=== PATIENT | female | born 1995 | race Two or more races ===

== ENCOUNTER 2021-02-05 11:15 | Emergency (ER) | payer MEDICAID, OTHER ==
[~2021-02-05] VITALS: Ht 152.4 cm; Wt 102.5 kg
[2021-02-05 12:46] VITALS: BP 133/76
== END 2021-02-05 13:17 | disposition home or self-care (01) ==
LOC: ER 11:15
DX: F41.1 Generalized anxiety disorder (principal)

== ENCOUNTER 2022-03-07 09:27 | Emergency (ER) | payer MEDICAID ==
[~2022-03-07] VITALS: Ht 152.4 cm; Wt 99.1 kg
[2022-03-07 10:19] LABS: Albumin 3.6 g/dL (3.4-5.0); Calcium 8.9 mg/dL (8.5-10.1); Potassium 3.6 mmol/L (3.5-5.1)
[2022-03-07 10:22] LABS: BUN/Creatinine Ratio 12.7; Bilirubin, Total 0.4 mg/dL (0.2-1.0); Total Protein 7.4 g/dL (6.4-8.2)
[2022-03-07 10:44] LABS: Basophils # (auto) 0 10 ^3/uL (0-0.2); Basophils % (auto) 0.7 % (0.0-2.0); Eosinophils # (auto) 0.4 10 ^3/uL (0-0.8); Eosinophils % (auto) 5.7 % (0.0-7.0); Hematocrit 38.9 % (36.0-46.0); Hemoglobin 13.1 g/dL (12.2-16.2); Lymphocytes # (auto) 1.9 10 ^3/uL (0.4-5.4); Lymphocytes % (auto) 29.9 % (10.0-50.0); Mean Corpuscular Hgb Conc. 33.7 g/dL (32.0-36.0); Mean Corpuscular Volume 80.2 fL (80.0-100.0); Monocytes # (auto) 0.4 10 ^3/uL (0-1.3); Neutrophils # (auto) 3.6 10 ^3/uL (1.6-8.6); Neutrophils % (auto) 57.7 % (37.0-80.0); Nucleated Red Blood Cells % 0.1 %; Red Blood Cells 4.86 10^6/uL (4.0-5.20); Red Cell Distribution Width 14.3 % (11.8-14.3); White Blood Cell 6.2 10^3/uL (4.4-10.8)
[2022-03-07 11:41] LABS: Urine Bacteria NONE SEEN /hpf (None Seen); Urine Blood 3+ /uL (Negative); Urine Mucus FEW (None Seen); Urine Specific Gravity 1.028 (1.001-1.035); Urine WBC 4 /hpf (0 - 5)
[2022-03-07 15:10] VITALS: BP 151/99
== END 2022-03-07 15:11 | disposition home or self-care (01) ==
LOC: ER 09:27
DX: N92.0 Excessive and frequent menstruation with regular cycle (principal)
CPT/HCPCS: 36415; 80053; 81001; 84702; 85025

== ENCOUNTER 2022-03-08 10:19 | Emergency (ER) | payer MEDICAID ==
[~2022-03-08] VITALS: Ht 152.4 cm; Wt 98.7 kg
[2022-03-08 11:05] VITALS: BP 132/77
== END 2022-03-08 16:40 | disposition left against medical advice (07) ==
LOC: ER 10:19
DX: N92.0 Excessive and frequent menstruation with regular cycle (principal); F41.9 Anxiety disorder, unspecified; Z53.29 Procedure and treatment not carried out because of patient's decision for other reasons

== ENCOUNTER 2024-04-04 04:46 | Inpatient (IN) | payer MEDICAID ==
[~2024-04-04] VITALS: Ht 152.4 cm; Wt 99.0 kg
--- NOTE | 2024-04-04 05:17 | ED.PDOC ---
GI ASSESSMENT HPI Comments 28 year old female presents to the ED with a chief complaint of abdominal pain onset today. Patient states she woke up today experiencing sharp epigastric pain that radiates to RUQ as well as nausea, vomiting. She states she had about 2 beers last night. PMHx of anxiety. Denies fever, chills, diarrhea, chest pain, shortness of breath, dizziness, dysuria, hematuria. No other symptoms or modifying factors present at this time. Time Seen by MD: 05:10 Primary Care Provider: ESTELA Dunn Notes: Medications, Allergies Allergies: Coded Allergies: NO KNOWN ALLERGIES (Unverified , 03/07/22) Information Source: Patient Mode of Arrival: Ambulatory Timing: Hours Duration: Since onset Prehospital treatment: None Quality: Sharp Severity: Moderate Recent: None Recent Hx of: None Pain Location: Epigastric, RUQ Modifying Factors: Nothing Associated sign and symptoms: Nausea, Vomiting, Abdominal Pain Past Medical History PAST MEDICAL HISTORY: Anxiety Surgical History: Denies all surgeries CONSERVATION COORDINATOR History: Denies all CONSERVATION COORDINATOR Hx Family History Family History: Reviewed,noncontributory to illness Social History Smoker: Non-Smoker Alcohol: Occasionally Drugs: Denies Drug Use Lives In: Home Constitutional: denies: chills, diaphoresis, fatigue, fever, malaise, sweats, weakness, others EENTM: denies: blurred vision, double vision, ear bleeding, ear discharge, ear drainage, ear pain, ear ringing, eye pain, eye redness, hearing loss, mouth pain, mouth swelling, nasal discharge, nose bleeding, nose congestion, nose pain, photophobia, tearing, throat pain, throat swelling, voice changes, others Respiratory: denies: cough, hemoptysis, orthopnea, SOB at rest, shortness of breath, SOB with excertion, stridor, wheezing, others Cardiovascular: denies: chest pain, dizzy spells, diaphoresis, Dyspnea on exertion, edema, irregular heart beat, left arm pain, lightheadedness, palpitations, PND, syncope, others Gastrointestinal: reports: abdominal pain, nausea, vomiting; denies: abdomen distended, blood streaked bowels, constipated, diarrhea, dysphagia, difficulty swallowing, hematemesis, melena, poor appetite, poor fluid intake, rectal bleeding, rectal pain, others Genitourinary: denies: abnormal vagina bleeding, burning, dyspareunia, dysuria, flank pain, frequency, hematuria, incontinence, pain, , vagina discharge, urgency, others Neurological: denies: dizziness, fainting, headache, left sided numbness, left sided weakness, numbness, paresthesia, pre-existing deficit, right sided numbness, right sided weakness, seizure, speech problems, tingling, tremors, weakness, others Musculoskeletal: denies: back pain, gout, joint pain, joint swelling, muscle pain, muscle stiffness, neck pain, others Integumetry: denies: bruises, change in color, change in hair/nails, dryness, laceration, lesions, lumps, rash, wounds, others Allergic/Immunocompromised: denies: Difficulty Healing, Frequent Infections, Hives, Itching, others Hematologic/Lymphatic: denies: anemia, blood clots, easy bleeding, easy bruising, swollen glands, others Endocrine: denies: excessive hunger, excessive sweating, excessive thirst, excessive urination, flushing, intolerance to cold, intolerance to heat, unexplained weight gain, unexplained weight loss, others Psychiatric: denies: anxiety, bipolar disorder, depression, hopeless, panic disorder, schizophrenia, sleepless, suicidal, others All Other Systems: Reviewed and Negative Physical Exam General Appearance: No Apparent Distress, Normal HEENT: Normal ENT Inspection, Pharynx Normal, TMs Normal Neck: Full Range of Motion, Non-Tender, Normal, Normal Inspection Respiratory: Chest Non-Tender, Lungs Clear, No Accessory Muscle Use, No Respiratory Distress, Normal Breath Sounds Cardiovascular: No Edema, No JVD, No Murmur, No Gallop, Normal Peripheral Pulses, Regular Rate/Rhythm Breast Exam: Deferred Gastrointestinal: No Organomegaly, No Pulsatile Mass, Normal Bowel Sounds, RUQ (tenderness), Tenderness (ruq) Genitalia: Deferred Pelvic: Deferred Rectal: Deferred Extremities: No calf tenderness, Normal capillary refill, Normal inspection, Normal range of motion, Non-tender, No pedal edema Musculoskeletal : Apperance: Normal Neurologic: Alert, gambling counsellor II-XII nml as Tested, No Motor Deficits, Normal Affect, Normal Mood, No Sensory Deficits Cerebellar Function: Normal Reflexes: Normal Skin: Dry, Normal Color, Warm Lymphatic: No Adenopathy Was a procedure done? Was a procedure done?: No GI differential Dx Differential Diagnosis: Appendicitis, Threatened , Bowel Obstruction, Cholecystitis, Constipation, Ectopic , Urolithiasis, Ischemic Bowel, Kidney Stone X-Ray, Labs, Meds, VS Vital Signs Date Time Temp Pulse Resp B/P (MAP) Pulse Ox O2 Delivery O2 Flow Rate FiO2 04/04/24 07:43 77 17 100 Room Air 04/04/24 07:43 97.9 77 17 159/93 (115) 100 97.9 04/04/24 05:05 97.5 86 20 155/85 (108) 100 Lab Test 04/04/24 05:24 Range/Units White Blood Count 7.7 4.4-10.8 10^3/uL Red Blood Count 4.32 4.0-5.20 10^6/uL Hemoglobin 9.9 L 12.2-16.2 g/dL Hematocrit 31.3 L 36.0-46.0 % Mean Corpuscular Volume 72.5 L 80.0-100.0 fL Mean Corpuscular Hemoglobin 22.9 L 28.0-32.0 pg Mean Corpuscular Hemoglobin Concent 31.7 L 32.0-36.0 g/dL Red Cell Distribution Width 15.9 H 11.8-14.3 % Platelet Count 347 140-450 10^3/uL Mean Platelet Volume 7.6 6.9-10.8 fL Neutrophils (%) (Auto) 80.7 H 37.0-80.0 % Lymphocytes (%) (Auto) 12.9 10.0-50.0 % Monocytes (%) (Auto) 5.0 0.0-12.0 % Eosinophils (%) (Auto) 0.8 0.0-7.0 % Basophils (%) (Auto) 0.6 0.0-2.0 % Neutrophils # (Auto) 6.2 1.6-8.6 10 ^3/uL Lymphocytes # (Auto) 1.0 0.4-5.4 10 ^3/uL Monocytes # (Auto) 0.4 0-1.3 10 ^3/uL Eosinophils # (Auto) 0.1 0-0.8 10 ^3/uL Basophils # (Auto) 0 0-0.2 10 ^3/uL Nucleated Red Blood Cells 0.1 % Urine Color Light-yellow Yellow Urine Clarity Clear Clear Urine pH 6.5 5.0-9.0 Urine Specific [place] 1.024 1.001-1.035 Urine Protein 1+ H Negative Urine Ketones 3+ H Negative Urine Blood 2+ H Negative /uL Urine Nitrite Negative Negative Urine Bilirubin Negative Negative Urine Urobilinogen 2 H Negative mg/dL Urine Leukocyte Esterase Negative Negative /uL Urine RBC 20 0 - 4 /hpf Urine Microscopic WBC 2 0-5 /HPF Urine Squamous Epithelial Cells Few <5 /hpf Urine Bacteria None seen None Seen /hpf Urine Glucose Normal Normal mg/dL Urine Test Negative Negative Sodium Level 137 136-145 mmol/L Potassium Level 3.5 3.5-5.1 mmol/L Chloride Level 101 98-107 mmol/L Carbon Dioxide Level 24 20-31 mmol/L Anion Gap 12 5-15 Blood Urea Nitrogen 11 9-23 mg/dL Creatinine 0.70 0.550-1.02 mg/dL Glomerular Filtration Rate Calc 121 >90 mL/min BUN/Creatinine Ratio 15.7 10.0-20.0 Serum Glucose 147 H 74-106 mg/dL Calcium Level 10.3 8.7-10.4 mg/dL Total Bilirubin 0.5 0.2-1.0 mg/dL Aspartate Amino Transferase (AST) 15 13-40 U/L Alanine Aminotransferase (ALT) 15 7-40 U/L Alkaline Phosphatase 61 46-116 U/L Total Protein 7.9 5.7-8.2 g/dL Albumin 4.7 3.2-4.8 g/dL Lipase 35 12-53 U/L Urine Opiates Screen Neg NEGATIVE Urine Fentanyl Screen Neg NEGATIVE Urine Barbiturates Screen Neg NEGATIVE Urine Phencyclidine Screen Neg NEGATIVE Urine Amphetamines Screen Neg NEGATIVE Urine Benzodiazepines Screen Neg NEGATIVE Urine Cocaine Screen Pos NEGATIVE Urine Cannabinoids Screen Pos NEGATIVE X-Ray, Labs, Meds, VS Comment Addendum by Dr. Silveira: This 28 year old female presented secondary to abdominal pain. We attempted to see the patient x 2 to reassess the patient. We were unable to find the patient. Patient was assumed to have eloped. Patient was foun at 0.745. she continues to have pain and appear unwell. I will admit her for further work up and mgt of likely symptomatic cholelithiasis. She will require a HIDA scan Time of 1ST Reevaluation: 05:40 Reevaluation 1ST: Unchanged Patient Education/Counseling: Diagnosis, Treatment, Prognosis Family Education/Counseling: No Family Present Additional Information The following tests were ordered, and results were reviewed by me: CBC, CMP, LIPASE, UA. DRUG SCREEN, US GALLBLADDER I reviewed and agreed with the following test results read by other providers: US GALLBLADDER I discussed treatment and results with medical personnel, patient Departure 1 Departure Time of Disposition: 07:13 Impression: Primary Impression: Abdominal pain Additional Impression: Cholelithiasis Disposition: 01 HOME / SELF CARE / HOMELESS Condition: Good Discharged With: Self Critical Care Note Critical Care Time?: No Stability Stability form required: No I personally scribed for STEVEN POMPA MD ([email or web address]) on 04/04/24 at 05:17. Electronically submitted by Kierra Montenegro ([email or web address]). I personally scribed for STEVEN POMPA MD ([email or web address]) on 04/04/24 at 05:18. Electronically submitted by Kierra Montenegro ([email or web address]). STEVEN POMPA MD Apr 04, 2024 05:17 JAMISON SILVEIRA MD Apr 04, 2024 07:19
[2024-04-04 05:33] LABS: Urine Bacteria None Seen /hpf (None Seen)
[2024-04-04 05:43] LABS: Eosinophils # (auto) 0.1 10 ^3/uL (0-0.8); Eosinophils % (auto) 0.8 % (0.0-7.0); Hematocrit 31.3 % (36.0-46.0); Mean Corpuscular Hemoglobin 22.9 pg (28.0-32.0); Monocytes # (auto) 0.4 10 ^3/uL (0-1.3); Nucleated Red Blood Cells % 0.1 %
[2024-04-04 05:44] LABS: Basophils # (auto) 0 10 ^3/uL (0-0.2); Basophils % (auto) 0.6 % (0.0-2.0); Hemoglobin 9.9 g/dL (12.2-16.2); Lymphocytes % (auto) 12.9 % (10.0-50.0); Mean Corpuscular Hgb Conc. 31.7 g/dL (32.0-36.0); Mean Corpuscular Volume 72.5 fL (80.0-100.0); Neutrophils # (auto) 6.2 10 ^3/uL (1.6-8.6); Neutrophils % (auto) 80.7 % (37.0-80.0); Platelet Count (auto) 347 10^3/uL (140-450); Red Blood Cells 4.32 10^6/uL (4.0-5.20); Red Cell Distribution Width 15.9 % (11.8-14.3); White Blood Cell 7.7 10^3/uL (4.4-10.8)
[2024-04-04 05:45] LABS: Urine Blood 2+ /uL (Negative); Urine Clarity Clear (Clear); Urine Color Light-Yellow (Yellow); Urine Protein, UAD 1+ (Negative); Urine Specific Gravity 1.024 (1.001-1.035); Urine Squamous Epithelial Cell FEW /hpf (<5); Urine Urobilinogen 2 mg/dL (Negative); Urine WBC 2 /HPF (0-5); Urine pH 6.5 (5.0-9.0)
[2024-04-04 05:58] LABS: Amphetamine Screen, Urine Neg (NEGATIVE); Barbiturate Scree,Urine Neg (NEGATIVE); Benzodiazephine Screen, Urine Neg (NEGATIVE); Cannabinoid Screen, Urine Pos (NEGATIVE); Cocaine Screen, Urine Pos (NEGATIVE); Opiate Scree,Urine Neg (NEGATIVE); Phencyclidine Screen, Urine Neg (NEGATIVE)
[2024-04-04 06:01] LABS: Alanine Aminotransferase 15 U/L (7-40); Albumin 4.7 g/dL (3.2-4.8); Alkaline Phosphatase 61 U/L (46-116); Anion Gap 12 (5-15); Aspartate Aminotransferase 15 U/L (13-40); Bilirubin, Total 0.5 mg/dL (0.2-1.0); Calcium 10.3 mg/dL (8.7-10.4); Carbon Dioxide 24 mmol/L (20-31); Chloride 101 mmol/L (98-107); Lipase 35 U/L (12-53); Sodium 137 mmol/L (136-145); Total Protein 7.9 g/dL (5.7-8.2)
[2024-04-04 06:18] LABS: Glucose 147 mg/dL (74-106); Potassium 3.5 mmol/L (3.5-5.1)
[2024-04-04 06:29] LABS: BUN/Creatinine Ratio 15.7 (10.0-20.0)
[2024-04-04 06:31] LABS: Blood Urea Nitrogen 11 mg/dL (9-23)
--- NOTE | 2024-04-04 06:37 | DVH ---
EXAM: US Abdomen Limited, Gallbladder CLINICAL INDICATION: ruq pain TECHNIQUE: Real-time ultrasound of the right upper quadrant with image documentation. COMPARISON: None FINDINGS: LIVER: Liver measures up to 4.7 cm. GALLBLADDER: Cholelithiasis with positive Gomez's signs. COMMON BILE DUCT: Unremarkable as visualized. No stones. No dilation. Common bile duct measures 0.37 cm in diameter. PANCREAS: Unremarkable as visualized. RIGHT KIDNEY: Right kidney measures up to 10.5 cm. OTHER FINDINGS: . . . IMPRESSION: Cholelithiasis with positive Gomez's signs. Findings may suggest evolving acute cholecystitis.
[2024-04-04] MEDS: SODIUM CHLORIDE 0.9% 1,000 ML IV ONE (08:07)
[2024-04-04] MEDS: ONDANSETRON HCL 4 MG/2 ML VIAL IV ONE ×2 (08:09→08:17)
[2024-04-04] MEDS: FAMOTIDINE (10MG/ML) 2ML VL IV ONE (08:17)
[2024-04-04] MEDS: MORPHINE SULFATE 4 MG/ML SYR/VIAL IV ONE (08:18)
[2024-04-04] MEDS: D5W/LACTATED RINGERS 1,000 ML IV ONE (10:00)
[2024-04-04] MEDS ORDERED: ACETAMINOPHEN 325 MG TAB PO PRN (10:00)
--- NOTE | 2024-04-04 10:00 | DVHHP2 ---
Admitting Diagnosis: Abdominal pain History of Present Illness 28 year old female presents to the ED with a chief complaint of abdominal pain onset today. Patient states she woke up today experiencing sharp epigastric pain that radiates to RUQ as well as nausea, vomiting. She states she had about 2 beers last night. PMHx of anxiety. Denies fever, chills, diarrhea, chest pain, shortness of breath, dizziness, dysuria, hematuria. No other symptoms or modifying factors present at this time. PAST MEDICAL HISTORY: Anxiety Surgical History: Denies all surgeries CAKE ICER History: Denies all CAKE ICER Hx Family History Family History: Reviewed,noncontributory to illness Social History Smoker: Non-Smoker Alcohol: Occasionally Drugs: Denies Drug Use Lives In: Home Allergies: Coded Allergies: NO KNOWN ALLERGIES (Unverified , 03/07/22) Current Medications Current Medications Medications (Trade) Dose Ordered Sig/Jayla Route PRN Reason Start Time Stop Time Status Last Admin Ceftriaxone Sodium 50 ml @ 100 mls/hr DAILY IV 04/04/24 10:00 Metronidazole 100 ml @ 100 mls/hr Q8H IV 04/04/24 09:30 Vital Signs Vital Signs Date Time Temp Pulse Resp B/P (MAP) Pulse Ox O2 Delivery O2 Flow Rate FiO2 04/04/24 08:50 98.2 70 18 145/90 (108) 100 98.2 04/04/24 07:43 Room Air Physical Exam General-28 years old woman, morbidly obese, sitting on chair radiology exam room. No apparent distress HEENT-atraumatic normocephalic Heart-regular rate and rhythm Lungs clear to auscultate bilaterally Abdomen soft, right upper quadrant tenderness, nondistended Musculoskeletal-no cyanosis, pedal edema Neuro-AO x3, no focal deficits Results Labs Test 04/04/24 05:24 Range/Units White Blood Count 7.7 4.4-10.8 10^3/uL Red Blood Count 4.32 4.0-5.20 10^6/uL Hemoglobin 9.9 L 12.2-16.2 g/dL Hematocrit 31.3 L 36.0-46.0 % Mean Corpuscular Volume 72.5 L 80.0-100.0 fL Mean Corpuscular Hemoglobin 22.9 L 28.0-32.0 pg Mean Corpuscular Hemoglobin Concent 31.7 L 32.0-36.0 g/dL Red Cell Distribution Width 15.9 H 11.8-14.3 % Platelet Count 347 140-450 10^3/uL Mean Platelet Volume 7.6 6.9-10.8 fL Neutrophils (%) (Auto) 80.7 H 37.0-80.0 % Lymphocytes (%) (Auto) 12.9 10.0-50.0 % Monocytes (%) (Auto) 5.0 0.0-12.0 % Eosinophils (%) (Auto) 0.8 0.0-7.0 % Basophils (%) (Auto) 0.6 0.0-2.0 % Neutrophils # (Auto) 6.2 1.6-8.6 10 ^3/uL Lymphocytes # (Auto) 1.0 0.4-5.4 10 ^3/uL Monocytes # (Auto) 0.4 0-1.3 10 ^3/uL Eosinophils # (Auto) 0.1 0-0.8 10 ^3/uL Basophils # (Auto) 0 0-0.2 10 ^3/uL Nucleated Red Blood Cells 0.1 % Urine Color Light-yellow Yellow Urine Clarity Clear Clear Urine pH 6.5 5.0-9.0 Urine Specific [place] 1.024 1.001-1.035 Urine Protein 1+ H Negative Urine Ketones 3+ H Negative Urine Blood 2+ H Negative /uL Urine Nitrite Negative Negative Urine Bilirubin Negative Negative Urine Urobilinogen 2 H Negative mg/dL Urine Leukocyte Esterase Negative Negative /uL Urine RBC 20 0 - 4 /hpf Urine Microscopic WBC 2 0-5 /HPF Urine Squamous Epithelial Cells Few <5 /hpf Urine Bacteria None seen None Seen /hpf Urine Glucose Normal Normal mg/dL Urine Test Negative Negative Sodium Level 137 136-145 mmol/L Potassium Level 3.5 3.5-5.1 mmol/L Chloride Level 101 98-107 mmol/L Carbon Dioxide Level 24 20-31 mmol/L Anion Gap 12 5-15 Blood Urea Nitrogen 11 9-23 mg/dL Creatinine 0.70 0.550-1.02 mg/dL Glomerular Filtration Rate Calc 121 >90 mL/min BUN/Creatinine Ratio 15.7 10.0-20.0 Serum Glucose 147 H 74-106 mg/dL Calcium Level 10.3 8.7-10.4 mg/dL Total Bilirubin 0.5 0.2-1.0 mg/dL Aspartate Amino Transferase (AST) 15 13-40 U/L Alanine Aminotransferase (ALT) 15 7-40 U/L Alkaline Phosphatase 61 46-116 U/L Total Protein 7.9 5.7-8.2 g/dL Albumin 4.7 3.2-4.8 g/dL Lipase 35 12-53 U/L Urine Opiates Screen Neg NEGATIVE Urine Fentanyl Screen Neg NEGATIVE Urine Barbiturates Screen Neg NEGATIVE Urine Phencyclidine Screen Neg NEGATIVE Urine Amphetamines Screen Neg NEGATIVE Urine Benzodiazepines Screen Neg NEGATIVE Urine Cocaine Screen Pos NEGATIVE Urine Cannabinoids Screen Pos NEGATIVE Primary Diagnosis Acute cholecystitis Cholelithiasis Drug abuse Plan Ultrasound shows cholelithiasis with positive Gomez sign HIDA scan completed pending results Start ceftriaxone, Flagyl for acute cholecystitis Surgery consult acute cholecystitis IV fluids Pain control Antiemetic NPO except meds for possible procedure. Resume regular diet if no surgery planned For pain Full code PPI for GI prophylaxis SCD for DVT prophylaxis NPO except meds Plan discussed with: Patient Problems List: (1) Cholecystitis (2) Abdominal pain Status: Acute (3) Cholelithiasis Status: Acute Date of Service: Apr 04, 2024 Billing Provider: RYLEY GALAVIZ MD Common Visit Codes: [id number] INP/OBS CARE (HIGH) RYLEY GALAVIZ MD Apr 04, 2024 10:00
[2024-04-04] MEDS: cefTRIAXone 1GM/50ML D5W 50 ML IV SCH (10:54)
[2024-04-04] MEDS: metroNIDAZOLE 500MG/100ML 100 ML IV SCH (10:59)
[2024-04-04] MEDS: PANTOPRAZOLE 40 MG/10 ML VIAL INJ IV SCH (10:59)
[2024-04-04 12:23] LABS: INR 1.01 (0.9-1.15); Prothrombin Time 10.7 sec (9.3-11.8)
--- NOTE | 2024-04-04 13:06 | DVH ---
EXAM: NM NM HIDA SCAN History: RUQ abd pain. symptomatic herve Comparison Study: None available TECHNIQUE: Following intravenous administration of 5.6 mCi of Tc-99m mebrofenin (Choletec), dynamic sequential images of the right upper abdomen were acquired for 60 minutes. An additional 4 hour delay ed planar image in the lateral right upper quadrant was also obtained. FINDINGS: The liver demonstrates prompt radiotracer uptake with clearance from blood pool. No focal perfusion d efects were noted. There was prompt excretion of the radiotracer into the biliary tree, without evide nce of biliary dilatation or obstruction. There was no filling of the gallbladder on the 60 minute or 4 hour delayed images. IMPRESSION: 1. Nonvisualized gallbladder, consistent with acute cholecystitis.
[2024-04-04] MEDS: SODIUM CHLOR 0.9% PF (SALINE LOCK) 10ML VIAL/SYR IV SCH (14:01)
[2024-04-04 15:11] VITALS: BP 131/73; PULSE 72; RESP 16; TEMP 98.7; O2SAT 100
[2024-04-04 15:50] VITALS: BP 132/76; PULSE 87; RESP 16; TEMP 98.3; O2SAT 100
[2024-04-04 16:27] VITALS: BP 132/76; PULSE 87; RESP 16; TEMP 98.3; O2SAT 100
[2024-04-04] MEDS: D5W/SOD CHL 0.45%/KCL 20MEQ 1,000 ML IV SCH (17:00)
[2024-04-04 20:00] VITALS: PULSE 77; RESP 18; O2SAT 97
[2024-04-04 20:59] VITALS: BP 124/66; PULSE 77; RESP 18; TEMP 98.7; O2SAT 97
[2024-04-04] MEDS: ceFAZolin 1GM/50ML 50 ML IV SCH (21:49)
[2024-04-05] VITALS (9 sets, daily range): BP systolic 102–124; BP diastolic 56–85; PULSE 61–86; RESP 16–20; TEMP 98–98.7; O2SAT 96–100
--- NOTE | 2024-04-05 06:03 | DVH ---
CHEST RADIOGRAPH Indication: Pain Technique: Single frontal view of the chest was obtained COMPARISON: None FINDINGS: Lines and Tubes: None Lungs: Clear Pleura: No effusion. No pneumothorax. Cardiomediastinal contours: Unremarkable Bones: Unremarkable IMPRESSION: No acute disease.
[2024-04-05 06:20] LABS: Basophils # (auto) 0 10 ^3/uL (0-0.2); Basophils % (auto) 0.4 % (0.0-2.0); Eosinophils # (auto) 0.1 10 ^3/uL (0-0.8); Eosinophils % (auto) 1.2 % (0.0-7.0); Hematocrit 29.5 % (36.0-46.0); Lymphocytes # (auto) 1.5 10 ^3/uL (0.4-5.4); Lymphocytes % (auto) 23.2 % (10.0-50.0); Mean Corpuscular Hemoglobin 22.7 pg (28.0-32.0); Mean Corpuscular Hgb Conc. 30.7 g/dL (32.0-36.0); Monocytes # (auto) 0.6 10 ^3/uL (0-1.3); Neutrophils # (auto) 4.1 10 ^3/uL (1.6-8.6); Neutrophils % (auto) 66.2 % (37.0-80.0); Platelet Count (auto) 252 10^3/uL (140-450); Red Blood Cells 3.99 10^6/uL (4.0-5.20); Red Cell Distribution Width 15.7 % (11.8-14.3); White Blood Cell 6.3 10^3/uL (4.4-10.8)
[2024-04-05 06:44] LABS: Alanine Aminotransferase 9 U/L (7-40); Albumin 3.8 g/dL (3.2-4.8); Alkaline Phosphatase 49 U/L (46-116); Anion Gap 8 (5-15); Aspartate Aminotransferase 10 U/L (13-40); BUN/Creatinine Ratio 8.2 (10.0-20.0); Bilirubin, Total 0.5 mg/dL (0.2-1.0); Blood Urea Nitrogen < 5 mg/dL (9-23); Calcium 9.3 mg/dL (8.7-10.4); Carbon Dioxide 26 mmol/L (20-31); Chloride 104 mmol/L (98-107); Glucose 103 mg/dL (74-106); Potassium 3.4 mmol/L (3.5-5.1); Sodium 138 mmol/L (136-145); Total Protein 6.3 g/dL (5.7-8.2)
[2024-04-05] MEDS: BUPIVACAINE 0.5% P/F INJ 10 ML VIAL ONE (07:01)
[2024-04-05] MEDS: LIDOCAINE W/ EPINEPHRINE 1% 20ML VIAL ONE (07:01)
[2024-04-05] MEDS ORDERED: MEPERIDINE HCL (25 MG/ML) 1ML VIAL ONE (07:34)
[2024-04-05] MEDS ORDERED: fentaNYL CITRATE 100 MCG/2 ML VL ONE (07:34)
[2024-04-05] MEDS ORDERED: MIDAZOLAM HCL 2MG/2ML 2ml VIAL (1mg/ml) ONE (07:34)
[2024-04-05] MEDS: SUCCINYLCHOLINE CHLORIDE 20 MG/ML 10ML VIAL IV ONE (08:01)
--- NOTE | 2024-04-05 08:12 | DVHINCON2 ---
Date of service: Apr 05, 2024 Family History: Patient reports no known family medical history. Allergies: Coded Allergies: NO KNOWN ALLERGIES (Unverified , 03/07/22) Current Medications Current Medications Medications (Trade) Dose Ordered Sig/Jayla Route PRN Reason Start Time Stop Time Status Last Admin Ceftriaxone Sodium 50 ml @ 100 mls/hr DAILY IV 04/04/24 10:00 04/04/24 10:54 Metronidazole 100 ml @ 100 mls/hr Q8H IV 04/04/24 09:30 04/05/24 01:43 Sodium Chloride (Saline Lock Ns) 10 ml Q8HR IV 04/04/24 14:00 04/05/24 05:42 Docusate Sodium (Colace Capsule) 100 mg BIDPRN PRN PO FOR CONSTIPATION 04/04/24 10:00 Acetaminophen (Tylenol Tablet) 650 mg Q6HP PRN PO PAIN SCALE 1-3 OR TEMP>100.4 04/04/24 10:00 Acetaminophen/ Hydrocodone Bitart (Loving 5/325MG Tab) 1 tab Q4HP PRN PO MODERATE PAIN (4-6 PAIN SCALE) 04/04/24 10:00 Hydromorphone HCl (Dilaudid Injection) 0.5 mg Q4HP PRN IV SEVERE PAIN (7-10 PAIN SCALE) 04/04/24 10:00 Ondansetron HCl (Zofran) 4 mg Q4HP PRN IV NAUSEA / VOMITING 04/04/24 10:00 Pantoprazole Sodium (Protonix) 40 mg DAILY IV 04/04/24 10:00 04/04/24 10:59 Potassium Chloride/Dextrose/ Sod Cl 1,000 ml @ 120 mls/hr Q8H20M IV 04/04/24 16:15 04/05/24 00:56 Cefazolin Sodium 50 ml @ 100 mls/hr Q8HR IV 04/04/24 22:00 04/05/24 05:41 Vital Signs Vital Signs Date Time Temp Pulse Resp B/P (MAP) Pulse Ox O2 Delivery O2 Flow Rate FiO2 04/05/24 05:00 98.4 86 20 124/85 (98) 97 98.4 04/04/24 20:00 Room Air* 0 21 Labs/Diagnostic Data Labs Test 04/05/24 04:54 04/04/24 11:29 04/04/24 05:24 Range/Units White Blood Count 6.3 4.4-10.8 10^3/uL Red Blood Count 3.99 L 4.0-5.20 10^6/uL Hemoglobin 9.0 L 12.2-16.2 g/dL Hematocrit 29.5 L 36.0-46.0 % Mean Corpuscular Volume 74.0 L 80.0-100.0 fL Mean Corpuscular Hemoglobin 22.7 L 28.0-32.0 pg Mean Corpuscular Hemoglobin Concent 30.7 L 32.0-36.0 g/dL Red Cell Distribution Width 15.7 H 11.8-14.3 % Platelet Count 252 140-450 10^3/uL Mean Platelet Volume 7.8 6.9-10.8 fL Neutrophils (%) (Auto) 66.2 37.0-80.0 % Lymphocytes (%) (Auto) 23.2 10.0-50.0 % Monocytes (%) (Auto) 9.0 0.0-12.0 % Eosinophils (%) (Auto) 1.2 0.0-7.0 % Basophils (%) (Auto) 0.4 0.0-2.0 % Neutrophils # (Auto) 4.1 1.6-8.6 10 ^3/uL Lymphocytes # (Auto) 1.5 0.4-5.4 10 ^3/uL Monocytes # (Auto) 0.6 0-1.3 10 ^3/uL Eosinophils # (Auto) 0.1 0-0.8 10 ^3/uL Basophils # (Auto) 0 0-0.2 10 ^3/uL Nucleated Red Blood Cells 0.0 % Sodium Level 138 136-145 mmol/L Potassium Level 3.4 L 3.5-5.1 mmol/L Chloride Level 104 98-107 mmol/L Carbon Dioxide Level 26 20-31 mmol/L Anion Gap 8 5-15 Blood Urea Nitrogen < 5 L 9-23 mg/dL Creatinine 0.61 0.550-1.02 mg/dL Glomerular Filtration Rate Calc 126 >90 mL/min BUN/Creatinine Ratio 8.2 L 10.0-20.0 Serum Glucose 103 74-106 mg/dL Calcium Level 9.3 8.7-10.4 mg/dL Total Bilirubin 0.5 0.2-1.0 mg/dL Aspartate Amino Transferase (AST) 10 L 13-40 U/L Alanine Aminotransferase (ALT) 9 7-40 U/L Alkaline Phosphatase 49 46-116 U/L Total Protein 6.3 5.7-8.2 g/dL Albumin 3.8 3.2-4.8 g/dL Prothrombin Time 10.7 9.3-11.8 sec Prothrombin Time INR 1.01 0.9-1.15 Lactic Acid Level 0.9 0.4-2.0 mmol/L Urine Color Light-yellow Yellow Urine Clarity Clear Clear Urine pH 6.5 5.0-9.0 Urine Specific [place] 1.024 1.001-1.035 Urine Protein 1+ H Negative Urine Ketones 3+ H Negative Urine Blood 2+ H Negative /uL Urine Nitrite Negative Negative Urine Bilirubin Negative Negative Urine Urobilinogen 2 H Negative mg/dL Urine Leukocyte Esterase Negative Negative /uL Urine RBC 20 0 - 4 /hpf Urine Microscopic WBC 2 0-5 /HPF Urine Squamous Epithelial Cells Few <5 /hpf Urine Bacteria None seen None Seen /hpf Urine Glucose Normal Normal mg/dL Urine Test Negative Negative Lipase 35 12-53 U/L Urine Opiates Screen Neg NEGATIVE Urine Fentanyl Screen Neg NEGATIVE Urine Barbiturates Screen Neg NEGATIVE Urine Phencyclidine Screen Neg NEGATIVE Urine Amphetamines Screen Neg NEGATIVE Urine Benzodiazepines Screen Neg NEGATIVE Urine Cocaine Screen Pos NEGATIVE Urine Cannabinoids Screen Pos NEGATIVE Assessment 04/05/24 28 YEAR OLD MORBIDLY OBESE FEMALE WITH SEVERAL MONTHS OF RECURRING RIGHT UPPER QUADRANT POST PRANDIAL PAIN, RADIATING TO UPPER BACK .DOCUMENTED C HOLELITHIASIS AND POSITIVE HIDA SCAN. ABDOMEN IS TENDER TO PALPATION IN THE UPPER RIGHT QUADRANT AND MID EPIGASTRIUM, LAPAROSCOPIC POSSIBLY OPEN CHOLECYSTECTOMY, RISKS AND COMPLICATIONS DISCUSSED. HER LIVER ENZYMES AND BILIRUBIN ARE NORMAL, HER TEST IS NEGATIVE. Plan discussed with: Patient SHARLA GROSS MD Apr 05, 2024 08:12
[2024-04-05] MEDS ORDERED: diphenhdrAMINE HCL 50 MG/1 ML VL ONE (08:15)
[2024-04-05] MEDS ORDERED: SUGAMMADEX 200mg/2ml Vial (100MG/ML) IV ONE (08:38)
[2024-04-05] MEDS ORDERED: ONDANSETRON HCL 4 MG/2 ML VIAL ONE (08:38)
[2024-04-05] MEDS ORDERED: KETOROLAC TROMETH 30 MG/ML 1ML VIAL ONE (08:39)
[2024-04-05] MEDS ORDERED: ONDANSETRON HCL 4 MG/2 ML VIAL IV ONE (09:15)
[2024-04-05] MEDS: KETOROLAC TROMETH 30 MG/ML 1ML VIAL IV ONE (09:15)
[2024-04-05] MEDS ORDERED: MIDAZOLAM HCL 2MG/2ML 2ml VIAL (1mg/ml) IV PRN (09:15)
[2024-04-05] MEDS ORDERED: hydrALAZINE HCL 20 MG/ML VL IV PRN (09:15)
[2024-04-05] MEDS ORDERED: MORPHINE SULFATE 4 MG/ML SYR/VIAL IV PRN (09:15)
[2024-04-05] MEDS ORDERED: ePHEDrine SULFATE 50 MG/ML AMP IV PRN (09:15)
[2024-04-05] MEDS: HYDROmorphone HCL 2 MG/ML VL/or syr IV PRN ×3 (09:31→22:45)
[2024-04-05] MEDS: HYDROmorphone HCL 2 MG/ML VL/or syr ONE (09:38)
--- NOTE | 2024-04-05 10:07 | DVHOP ---
DATE OF SURGERY: 04/05/2024 PREOPERATIVE DIAGNOSES: * Cholelithiasis. * Cholecystitis. POSTOPERATIVE DIAGNOSES: * Cholelithiasis. * Cholecystitis. * Morbid obesity. SURGEON: Pacheco Hester MD ANESTHESIA: General endotracheal, Dr. Wilson. PROCEDURES: * Laparoscopy. * Laparoscopic cholecystectomy. DESCRIPTION OF PROCEDURE: Under general endotracheal anesthesia with the patient's skin prepped and draped, supraumbilical incision was made. Veress needle inserted into the peritoneal cavity by the hanging drop technique in order to establish pneumoperitoneum to 15 mmHg pressure by insufflation with carbon dioxide. With the abdomen fully distended, the needle was removed and replaced with a 5 mm trocar port through which a 0-degree viewing laparoscope was inserted, and under direct vision, additional 5 and 10 mm ports inserted through the right anterior axillary line location at the level of the umbilicus and through the subxiphoid midline skin respectively. Instrumentation was introduced. Laparoscopy was performed revealing no obvious unexpected pathology, although laparoscopy was hampered by the patient's morbid obesity. The gallbladder was acutely inflamed and was massively distended, erythematous, and edematous. The gallbladder was placed on tension. The cystic duct and cystic artery were identified, circumferentially dissected, skeletonized, and traced into the hepatocystic triangle so as to minimize the potential for inadvertent injury to the common bile duct. The gallbladder was then manipulated in such a way as to be able to transect the cystic duct and cystic artery close to the gallbladder as these structures were foreshortened due to the inflammatory changes. The cystic duct and cystic artery were divided between metallic clips. Then, subsequently the gallbladder was resected from its liver bed by electrocautery and traction. The fully mobilized gallbladder was removed from the peritoneal cavity by placement in a specimen extraction bag. The subhepatic space was irrigated. The irrigant was aspirated. A 10 mm Tremayne-Duong drain was placed underneath the right lobe of the liver and exteriorized through the 5 mm trocar port site and secured with a 2-0 nylon suture. The patient's fascia was closed using Endo Close suture with a 2-0 Vicryl. The patient's skin approximated using metallic skin mila. She remained hemodynamically stable and left the operating room following assurance of complete hemostasis within the abdomen. The patient asked me preoperatively not to call her family after the surgery. MD FLORENCE Azevedo/TRINA/KASEY TID: [id number] RECEIPT: [id number]
--- NOTE | 2024-04-05 10:36 | ECG ---
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
[2024-04-05] MEDS: D5W/SOD CHL 0.45%/KCL 20MEQ 1,000 ML IV SCH (11:27)
[2024-04-05] MEDS: cefTRIAXone 1GM/50ML D5W 50 ML IV SCH (12:07)
--- NOTE | 2024-04-05 13:15 | DVHPNRES ---
Progress Note Date Seen: Apr 05, 2024 Resident Creating Document: JHEsvinJGILDARDO LeslieBRYAN RESIDENT Medical Necessity Reason Pt with a Central, PICC or Fol: No Subjective Review of Systems Patient is a 28-year-old female with no significant past medical history came to the ED with a chief complaint of sudden onset abdominal pain since the morning yesterday. Patient reported she was apparently well until the night before and woke up with sudden onset right upper quadrant and epigastric pain which radiated to the back, constant, sharp, severe in intensity associated with the multiple episodes of vomiting. Patient also reported cold sweats. Patient reported that she had a couple of beers the night prior. Patient denied chest pain, palpitations, shortness of breath, dizziness, dysuria or hematuria. Past medical history: None Past surgical history: None Social history: Patient lives at home and denies smoking, alcohol, drug use No home medication Review of systems Patient seen and examined at bedside after laparoscopic cholecystectomy Reports [id number] abdominal tightness. Denies nausea or vomiting Tolerating clear liquid diet well Currently denied passing flatus or bowel movement Objective vital signs Vital Sign Date Time Temp Pulse Resp B/P (MAP) Pulse Ox O2 Delivery O2 Flow Rate FiO2 04/05/24 10:30 98.1 64 16 102/56 (71) 100 98.1 04/05/24 10:00 Room Air 0 04/05/24 09:18 98 Total Intake and Output 04/04/24 04/04/24 04/05/24 15:00 23:00 07:00 Intake Total 1000 ml 150 ml 175 ml Balance 1000 ml 150 ml 175 ml medications Current Medications Medications Dose Ordered Sig/Jayla Route Start Time Stop Time Status Last Admin Dose Admin Metronidazole 100 ml @ 100 mls/hr Q8H IV 04/04/24 09:30 04/05/24 11:26 100 MLS/HR Sodium Chloride 10 ml Q8HR IV 04/04/24 14:00 04/05/24 05:42 10 ML Docusate Sodium 100 mg BIDPRN PRN PO 04/04/24 10:00 Acetaminophen 650 mg Q6HP PRN PO 04/04/24 10:00 Acetaminophen/ Hydrocodone Bitart 1 tab Q4HP PRN PO 04/04/24 10:00 Hydromorphone HCl 0.5 mg Q4HP PRN IV 04/04/24 10:00 Ondansetron HCl 4 mg Q4HP PRN IV 04/04/24 10:00 Pantoprazole Sodium 40 mg DAILY IV 04/04/24 10:00 04/05/24 11:26 40 MG Midazolam HCl 1 mg Q10M PRN IV 04/05/24 09:15 04/05/24 15:00 Hydromorphone HCl 0.5 mg Q10M PRN IV 04/05/24 09:15 04/05/24 15:00 04/05/24 09:44 0.5 MG Potassium Chloride/Dextrose/ Sod Cl 1,000 ml @ 120 mls/hr Q8H20M IV 04/05/24 09:15 04/05/24 11:27 120 MLS/HR Ceftriaxone Sodium 50 ml @ 100 mls/hr DAILY@09 IV 04/05/24 10:00 04/05/24 12:07 100 MLS/HR Metronidazole 100 ml @ 100 mls/hr Q8HR IV 04/05/24 14:00 Hydromorphone HCl 1 mg Q2HPRN PRN IV 04/05/24 09:15 Examination Physical Examination Constitutional: Patient was alert and oriented to time, place and person and does not appear to be in any acute distress Gen - no pallor, no icterus, no cyanosis, no clubbing, no LAD, no edema . Skin - Patients skin is warm and dry. HEENT - normocephalic, atraumatic, moist mucous membranes. Neck - full ROM, no LAD, no JVD. Pulmonary - B/L vesicular breath sounds. no crackles, no wheezing cardiovascular - normal S1,S2 heard. no murmurs heard. GI -abdominal binder on. soft abdomen with tenderness to palpation. Bowel sounds hypoactive Neurological - Bilateral upper extremity strength 5/5, bilateral lower extremity strength 5/5, no facial droop, normal speech, no tremor, no sensory deficiets. laboratory and microbiology Laboratory Tests 04/05/24 04:54 Test 04/05/24 04:54 Range/Units Serum Glucose 103 74-106 mg/dL Microbiology Date/Time Source Procedure Growth Status 04/04/24 11:51 Blood Blood Culture - Preliminary NO GROWTH AFTER 24 HOURS OF INCUBATION. Resulted Problem List/Assessment/Plan Problem List/Assessment/Plan Acute abdominal pain Acute cholecystitis Ruled out acute pancreatitis - gallbladder ultrasound showed cholelithiasis with a positive Gomez's sign - nuclear medicine HIDA scan reveals nonvisualized gallbladder, consistent with the acute cholecystitis - laparoscopic cholecystectomy done - MANDI drain with a serosanguineous drainage - on clear liquid diet - ceftriaxone IV and metronidazole IV - pain control with Dilaudid and Exchange - IV fluids D5 half NS with potassium 20 mEq Polysubstance abuse - urinalysis positive for cocaine and cannabis - patient counseled on cessation for more than 15 minutes PUD prophylaxis: Protonix 40 mg IV daily Goals care discussed with the patient for over 25 minutes. Full code Plan discussed with Plan discussed with: Patient Date of Service: Apr 05, 2024 Billing Provider: KAMALA TOWNSEND MD Common Visit Codes: [id number] INP/OBS CARE(HIGH) NEFTALY CAMPOVERDE RESIDENT Apr 05, 2024 13:15 KAMALA TOWNSEND MD Apr 08, 2024 10:13
[2024-04-05] MEDS: metroNIDAZOLE 500MG/100ML 100 ML IV SCH ×2 (14:58→22:52)
[2024-04-06] VITALS (7 sets, daily range): BP systolic 101–130; BP diastolic 56–74; PULSE 60–70; RESP 17–20; TEMP 97.5–98.7; O2SAT 94–100
[2024-04-06 05:40] LABS: Basophils # (auto) 0 10 ^3/uL (0-0.2); Basophils % (auto) 0.3 % (0.0-2.0); Eosinophils # (auto) 0 10 ^3/uL (0-0.8); Eosinophils % (auto) 0.1 % (0.0-7.0); Hematocrit 27.4 % (36.0-46.0); Hemoglobin 8.5 g/dL (12.2-16.2); Lymphocytes # (auto) 1.2 10 ^3/uL (0.4-5.4); Lymphocytes % (auto) 12.8 % (10.0-50.0); Mean Corpuscular Hemoglobin 22.9 pg (28.0-32.0); Mean Corpuscular Hgb Conc. 30.9 g/dL (32.0-36.0); Mean Corpuscular Volume 74.1 fL (80.0-100.0); Monocytes # (auto) 0.7 10 ^3/uL (0-1.3); Monocytes % (auto) 7.4 % (0.0-12.0); Neutrophils # (auto) 7.6 10 ^3/uL (1.6-8.6); Neutrophils % (auto) 79.4 % (37.0-80.0); Nucleated Red Blood Cells % 0.1 %; Platelet Count (auto) 242 10^3/uL (140-450); Red Blood Cells 3.71 10^6/uL (4.0-5.20); Red Cell Distribution Width 16.2 % (11.8-14.3); White Blood Cell 9.5 10^3/uL (4.4-10.8)
[2024-04-06 06:07] LABS: Alanine Aminotransferase 12 U/L (7-40); Albumin 3.8 g/dL (3.2-4.8); Alkaline Phosphatase 46 U/L (46-116); Anion Gap 8 (5-15); Aspartate Aminotransferase 14 U/L (13-40); BUN/Creatinine Ratio 8.1 (10.0-20.0); Bilirubin, Total 0.4 mg/dL (0.2-1.0); Blood Urea Nitrogen < 5 mg/dL (9-23); Calcium 9.3 mg/dL (8.7-10.4); Carbon Dioxide 24 mmol/L (20-31); Chloride 105 mmol/L (98-107); Glucose 117 mg/dL (74-106); Sodium 137 mmol/L (136-145); Total Protein 6.2 g/dL (5.7-8.2)
[2024-04-06] MEDS ORDERED: PROPOFOL 10 MG/ML 20 ML IV ONE (07:39)
[2024-04-06] MEDS: DOCUSATE SOD 100 MG CAP PO PRN (08:25)
[2024-04-06] MEDS: HYDROcodone-ACET 5/325MG TAB PO PRN (12:03)
[2024-04-06] MEDS: ONDANSETRON HCL 4 MG/2 ML VIAL IV PRN (12:11)
--- NOTE | 2024-04-06 12:22 | DVHPN2 ---
Progress Note Date Seen: Apr 06, 2024 Medical Necessity Reason Pt with a Central, PICC or Fol: No Objective vital signs Vital Sign Date Time Temp Pulse Resp B/P (MAP) Pulse Ox O2 Delivery O2 Flow Rate FiO2 04/06/24 09:00 98.2 65 18 119/68 (85) 98 98.2 04/06/24 07:30 Room Air* 0 21 Total Intake and Output 04/05/24 04/05/24 04/06/24 15:00 23:00 07:00 Intake Total 760 ml 2085 ml 2075 ml Output Total 120 ml 25 ml Balance 640 ml 2060 ml 2075 ml medications Current Medications Medications Dose Ordered Sig/Jayla Route Start Time Stop Time Status Last Admin Dose Admin Sodium Chloride 10 ml Q8HR IV 04/04/24 14:00 04/06/24 06:28 10 ML Docusate Sodium 100 mg BIDPRN PRN PO 04/04/24 10:00 04/06/24 08:25 100 MG Acetaminophen 650 mg Q6HP PRN PO 04/04/24 10:00 Acetaminophen/ Hydrocodone Bitart 1 tab Q4HP PRN PO 04/04/24 10:00 04/06/24 12:03 1 TAB Ondansetron HCl 4 mg Q4HP PRN IV 04/04/24 10:00 04/06/24 12:11 4 MG Pantoprazole Sodium 40 mg DAILY IV 04/04/24 10:00 04/06/24 08:25 40 MG Potassium Chloride/Dextrose/ Sod Cl 1,000 ml @ 120 mls/hr Q8H20M IV 04/05/24 09:15 04/06/24 10:52 120 MLS/HR Ceftriaxone Sodium 50 ml @ 100 mls/hr DAILY@09 IV 04/05/24 10:00 04/06/24 08:25 100 MLS/HR Hydromorphone HCl 1 mg Q2HPRN PRN IV 04/05/24 09:15 04/06/24 08:25 1 MG Metronidazole 100 ml @ 100 mls/hr Q8H IV 04/05/24 20:00 04/06/24 10:53 100 MLS/HR laboratory and microbiology Laboratory Tests 04/06/24 05:05 Test 04/06/24 05:05 Range/Units Serum Glucose 117 H 74-106 mg/dL Problem List/Assessment/Plan Problem List/Assessment/Plan 04/06/24 FEELS "ok" ABDOMEN APPROPRIATELY TENDER, WOUNDS CLEAN AND WELL APPROXIMATED, MANDI DRAINAGE NON BILIOUS, LABS OK, ADVANCE PO DIET, PROBABLY HOME IN AM TOMORROW 2 Plan discussed with: Patient SHARLA GROSS MD Apr 06, 2024 12:22
--- NOTE | 2024-04-06 12:55 | DVHPNRES ---
Progress Note Date Seen: Apr 06, 2024 Resident Creating Document: JHAJNEFTALY Leslie RESIDENT Medical Necessity Reason Pt with a Central, PICC or Fol: No Subjective Review of Systems Patient seen and examined at bedside s/p laparoscopic cholecystectomy day 1 Reports [id number] abdominal tightness. Denies nausea or vomiting Tolerating clear liquid diet well passing flatus Objective vital signs Vital Sign Date Time Temp Pulse Resp B/P (MAP) Pulse Ox O2 Delivery O2 Flow Rate FiO2 04/06/24 09:00 98.2 65 18 119/68 (85) 98 98.2 04/06/24 07:30 Room Air* 0 21 Total Intake and Output 04/05/24 04/05/24 04/06/24 15:00 23:00 07:00 Intake Total 760 ml 2085 ml 2075 ml Output Total 120 ml 25 ml Balance 640 ml 2060 ml 2075 ml medications Current Medications Medications Dose Ordered Sig/Jayla Route Start Time Stop Time Status Last Admin Dose Admin Sodium Chloride 10 ml Q8HR IV 04/04/24 14:00 04/06/24 06:28 10 ML Docusate Sodium 100 mg BIDPRN PRN PO 04/04/24 10:00 04/06/24 08:25 100 MG Acetaminophen 650 mg Q6HP PRN PO 04/04/24 10:00 Acetaminophen/ Hydrocodone Bitart 1 tab Q4HP PRN PO 04/04/24 10:00 04/06/24 12:03 1 TAB Ondansetron HCl 4 mg Q4HP PRN IV 04/04/24 10:00 04/06/24 12:11 4 MG Pantoprazole Sodium 40 mg DAILY IV 04/04/24 10:00 04/06/24 08:25 40 MG Potassium Chloride/Dextrose/ Sod Cl 1,000 ml @ 120 mls/hr Q8H20M IV 04/05/24 09:15 04/06/24 10:52 120 MLS/HR Ceftriaxone Sodium 50 ml @ 100 mls/hr DAILY@09 IV 04/05/24 10:00 04/06/24 08:25 100 MLS/HR Hydromorphone HCl 1 mg Q2HPRN PRN IV 04/05/24 09:15 04/06/24 08:25 1 MG Metronidazole 100 ml @ 100 mls/hr Q8H IV 04/05/24 20:00 04/06/24 10:53 100 MLS/HR Examination Constitutional: Patient was alert and oriented to time, place and person and does not appear to be in any acute distress Gen - no pallor, no icterus, no cyanosis, no clubbing, no LAD, no edema . Skin - Patients skin is warm and dry. HEENT - normocephalic, atraumatic, moist mucous membranes. Neck - full ROM, no LAD, no JVD. Pulmonary - B/L vesicular breath sounds. no crackles, no wheezing cardiovascular - normal S1,S2 heard. no murmurs heard. GI -abdominal binder on. soft abdomen with tenderness to palpation. Bowel sounds normoactive. MANDI drain in the right upper quadrant with serosanginous drainage Neurological - Bilateral upper extremity strength 5/5, bilateral lower extremity strength 5/5, no facial droop, normal speech, no tremor, no sensory deficiets. laboratory and microbiology Laboratory Tests 04/06/24 05:05 Test 04/06/24 05:05 Range/Units Serum Glucose 117 H 74-106 mg/dL Microbiology Date/Time Source Procedure Growth Status 04/04/24 11:51 Blood Blood Culture - Preliminary NO GROWTH AFTER 48 HOURS OF INCUBATION. Resulted Problem List/Assessment/Plan Problem List/Assessment/Plan Acute abdominal pain Acute cholecystitis Ruled out acute pancreatitis - gallbladder ultrasound showed cholelithiasis with a positive Gomez's sign - nuclear medicine HIDA scan reveals nonvisualized gallbladder, consistent with the acute cholecystitis - laparoscopic cholecystectomy done - MANDI drain with a serosanguineous drainage - on clear liquid diet - ceftriaxone IV and metronidazole IV - pain control with Dilaudid and Sprague - IV fluids D5 half NS with potassium 20 mEq - 04/06- S/P surgery day1. patient denied passing flatus or bowel movement. tolerating clear liquid diet well. Diet advanced to regular diet Polysubstance abuse - urinalysis positive for cocaine and cannabis - patient counseled on cessation for more than 15 minutes PUD prophylaxis: Protonix 40 mg IV daily Goals care discussed with the patient for over 21 minutes. Full code Plan discussed with Plan discussed with: Patient Date of Service: Apr 06, 2024 Billing Provider: CATALINA LASSITER MD Common Visit Codes: [id number] INP/OBS CARE(HIGH) NEFTALY CAMPOVERDE RESIDENT Apr 06, 2024 12:55 CATALINA LASSITER MD Apr 09, 2024 10:32
[2024-04-07 05:00] VITALS: BP 106/59; PULSE 79; RESP 17; TEMP 97.6; O2SAT 95
[2024-04-07 06:05] LABS: Basophils # (auto) 0 10 ^3/uL (0-0.2); Hematocrit 26.8 % (36.0-46.0); Hemoglobin 8.4 g/dL (12.2-16.2); Lymphocytes # (auto) 1.5 10 ^3/uL (0.4-5.4); White Blood Cell 6.1 10^3/uL (4.4-10.8)
[2024-04-07 06:10] LABS: Basophils % (auto) 0.8 % (0.0-2.0); Eosinophils # (auto) 0 10 ^3/uL (0-0.8); Eosinophils % (auto) 0.7 % (0.0-7.0); Lymphocytes % (auto) 25.2 % (10.0-50.0); Mean Corpuscular Hemoglobin 22.9 pg (28.0-32.0); Mean Corpuscular Hgb Conc. 31.1 g/dL (32.0-36.0); Mean Corpuscular Volume 73.5 fL (80.0-100.0); Monocytes # (auto) 0.4 10 ^3/uL (0-1.3); Monocytes % (auto) 7.3 % (0.0-12.0); Nucleated Red Blood Cells % 0.2 %; Platelet Count (auto) 244 10^3/uL (140-450); Red Blood Cells 3.65 10^6/uL (4.0-5.20); Red Cell Distribution Width 15.6 % (11.8-14.3)
[2024-04-07 06:33] LABS: Alanine Aminotransferase 12 U/L (7-40); Albumin 3.7 g/dL (3.2-4.8); Anion Gap 7 (5-15); Carbon Dioxide 26 mmol/L (20-31); Chloride 105 mmol/L (98-107); Glucose 103 mg/dL (74-106); Potassium 3.9 mmol/L (3.5-5.1); Sodium 138 mmol/L (136-145)
[2024-04-07 06:38] LABS: Alkaline Phosphatase 42 U/L (46-116); Aspartate Aminotransferase 11 U/L (13-40); BUN/Creatinine Ratio 6.8 (10.0-20.0); Bilirubin, Total 0.3 mg/dL (0.2-1.0); Blood Urea Nitrogen < 5 mg/dL (9-23)
[2024-04-07 08:00] VITALS: PULSE 80; RESP 18; O2SAT 96
[2024-04-07 08:45] VITALS: BP 127/70; PULSE 80; RESP 18; TEMP 98.5; O2SAT 96
--- NOTE | 2024-04-07 11:36 | DVHPN2 ---
Progress Note Date Seen: Apr 07, 2024 Medical Necessity Reason Pt with a Central, PICC or Fol: No Objective vital signs Vital Sign Date Time Temp Pulse Resp B/P (MAP) Pulse Ox O2 Delivery O2 Flow Rate FiO2 04/07/24 08:45 98.5 80 18 127/70 (89) 96 98.5 04/06/24 20:00 Room Air* 0 21 Total Intake and Output 04/06/24 04/06/24 04/07/24 15:00 23:00 07:00 Intake Total 1150 ml 1850 ml 730 ml Balance 1150 ml 1850 ml 730 ml medications Current Medications Medications Dose Ordered Sig/Jayla Route Start Time Stop Time Status Last Admin Dose Admin Sodium Chloride 10 ml Q8HR IV 04/04/24 14:00 04/07/24 06:00 10 ML Docusate Sodium 100 mg BIDPRN PRN PO 04/04/24 10:00 04/06/24 08:25 100 MG Acetaminophen 650 mg Q6HP PRN PO 04/04/24 10:00 Acetaminophen/ Hydrocodone Bitart 1 tab Q4HP PRN PO 04/04/24 10:00 04/07/24 10:15 1 TAB Ondansetron HCl 4 mg Q4HP PRN IV 04/04/24 10:00 04/06/24 12:11 4 MG Pantoprazole Sodium 40 mg DAILY IV 04/04/24 10:00 04/07/24 10:15 40 MG Potassium Chloride/Dextrose/ Sod Cl 1,000 ml @ 120 mls/hr Q8H20M IV 04/05/24 09:15 04/07/24 07:15 120 MLS/HR Ceftriaxone Sodium 50 ml @ 100 mls/hr DAILY@09 IV 04/05/24 10:00 04/07/24 10:15 100 MLS/HR Hydromorphone HCl 1 mg Q2HPRN PRN IV 04/05/24 09:15 04/06/24 08:25 1 MG Metronidazole 100 ml @ 100 mls/hr Q8H IV 04/05/24 20:00 04/07/24 03:39 100 MLS/HR laboratory and microbiology Laboratory Tests 04/07/24 05:22 Test 04/07/24 05:22 Range/Units Serum Glucose 103 74-106 mg/dL Problem List/Assessment/Plan Problem List/Assessment/Plan 04/06/24 FEELS "ok" ABDOMEN APPROPRIATELY TENDER, WOUNDS CLEAN AND WELL APPROXIMATED, MANDI DRAINAGE NON BILIOUS, LABS OK, ADVANCE PO DIET, PROBABLY HOME IN AM TOMORROW/ 04/07/24 feeling well, has ambulated, wouynds clean and well approximated, drainage non bilious, instructions given, may be discharged, may shower after 72 hours, Plan discussed with: Patient, Spouse SHARLA GROSS MD Apr 07, 2024 11:36
[2024-04-07 12:39] VITALS: BP 105/60; PULSE 66; RESP 18; TEMP 98.6; O2SAT 98
[2024-04-07] MEDS ORDERED: HYDR-4902 PO (12:57)
[2024-04-07] MEDS ORDERED: METR-344 PO (13:54)
[2024-04-07] MEDS ORDERED: CIPR250T3 PO (13:54)
--- NOTE | 2024-04-07 14:21 | DVHDSRES ---
Discharge Summary Date of Admission Resident Creating Document: MANJU CALLE RESIDENT Apr 04, 2024 at 09:57 Date of Discharge: Apr 07, 2024 Admitting Diagnosis acute cholecystitis Labs/Diagnostic Data: Laboratory Results Test 04/07/24 05:22 04/04/24 11:29 04/04/24 05:24 White Blood Count 6.1 10^3/uL (4.4-10.8) Red Blood Count 3.65 10^6/uL (4.0-5.20) Hemoglobin 8.4 g/dL (12.2-16.2) Hematocrit 26.8 % (36.0-46.0) Mean Corpuscular Volume 73.5 fL (80.0-100.0) Mean Corpuscular Hemoglobin 22.9 pg (28.0-32.0) Mean Corpuscular Hemoglobin Concent 31.1 g/dL (32.0-36.0) Red Cell Distribution Width 15.6 % (11.8-14.3) Platelet Count 244 10^3/uL (140-450) Mean Platelet Volume 7.8 fL (6.9-10.8) Neutrophils (%) (Auto) 66.0 % (37.0-80.0) Lymphocytes (%) (Auto) 25.2 % (10.0-50.0) Monocytes (%) (Auto) 7.3 % (0.0-12.0) Eosinophils (%) (Auto) 0.7 % (0.0-7.0) Basophils (%) (Auto) 0.8 % (0.0-2.0) Neutrophils # (Auto) 4.0 10 ^3/uL (1.6-8.6) Lymphocytes # (Auto) 1.5 10 ^3/uL (0.4-5.4) Monocytes # (Auto) 0.4 10 ^3/uL (0-1.3) Eosinophils # (Auto) 0 10 ^3/uL (0-0.8) Basophils # (Auto) 0 10 ^3/uL (0-0.2) Nucleated Red Blood Cells 0.2 % Sodium Level 138 mmol/L (136-145) Potassium Level 3.9 mmol/L (3.5-5.1) Chloride Level 105 mmol/L (98-107) Carbon Dioxide Level 26 mmol/L (20-31) Anion Gap 7 (5-15) Blood Urea Nitrogen < 5 mg/dL (9-23) Creatinine 0.74 mg/dL (0.550-1.02) Glomerular Filtration Rate Calc 114 mL/min (>90) BUN/Creatinine Ratio 6.8 (10.0-20.0) Serum Glucose 103 mg/dL (74-106) Calcium Level 9.0 mg/dL (8.7-10.4) Total Bilirubin 0.3 mg/dL (0.2-1.0) Aspartate Amino Transferase (AST) 11 U/L (13-40) Alanine Aminotransferase (ALT) 12 U/L (7-40) Alkaline Phosphatase 42 U/L (46-116) Total Protein 6.0 g/dL (5.7-8.2) Albumin 3.7 g/dL (3.2-4.8) Prothrombin Time 10.7 sec (9.3-11.8) Prothrombin Time INR 1.01 (0.9-1.15) Lactic Acid Level 0.9 mmol/L (0.4-2.0) Urine Color Light-yellow (Yellow) Urine Clarity Clear (Clear) Urine pH 6.5 (5.0-9.0) Urine Specific [place] 1.024 (1.001-1.035) Urine Protein 1+ (Negative) Urine Ketones 3+ (Negative) Urine Blood 2+ /uL (Negative) Urine Nitrite Negative (Negative) Urine Bilirubin Negative (Negative) Urine Urobilinogen 2 mg/dL (Negative) Urine Leukocyte Esterase Negative /uL (Negative) Urine RBC 20 /hpf (0 - 4) Urine Microscopic WBC 2 /HPF (0-5) Urine Squamous Epithelial Cells Few /hpf (<5) Urine Bacteria None seen /hpf (None Seen) Urine Glucose Normal mg/dL (Normal) Urine Test Negative (Negative) Lipase 35 U/L (12-53) Urine Opiates Screen Neg (NEGATIVE) Urine Fentanyl Screen Neg (NEGATIVE) Urine Barbiturates Screen Neg (NEGATIVE) Urine Phencyclidine Screen Neg (NEGATIVE) Urine Amphetamines Screen Neg (NEGATIVE) Urine Benzodiazepines Screen Neg (NEGATIVE) Urine Cocaine Screen Pos (NEGATIVE) Urine Cannabinoids Screen Pos (NEGATIVE) Other Laboratory Tests 04/07/24 05:22 Brief Hx & Hospital Course: A 28-year-old female with no significant past medical history presented with acute right upper quadrant pain radiating to the back, associated with vomiting and tenderness. Workup revealed acute cholecystitis with cholelithiasis confirmed by ultrasound and a HIDA scan. The patient underwent a laparoscopic cholecystectomy with placement of a TIMMY drain. Postoperatively, she was managed with IV ceftriaxone and metronidazole, patient tolerated diet and had adequate pain control The patient tolerated the postoperative course well, denying nausea or vomiting, with stable vital signsThe TIMMY drain showed serosanguinous output, and the patient reported multiple flatus during the hospitalization, day 2 postop. She was also counseled for polysubstance use due to a positive urine drug screen. She was discharged on postoperative day 2 in stable condition, with the plan to advance to a regular diet, continue pain management, and follow up for drain removal with surgery. DC with pain medication and antibiotics Constitutional: Patient was alert and oriented to time, place and person and does not appear to be in any acute distress Gen - no pallor, no icterus, no cyanosis, no clubbing, no LAD, no edema . Skin - Patients skin is warm and dry. HEENT - normocephalic, atraumatic, moist mucous membranes. Neck - full ROM, no LAD, no JVD. Pulmonary - B/L vesicular breath sounds. no crackles, no wheezing cardiovascular - normal S1,S2 heard. no murmurs heard. GI -abdominal binder on. soft abdomen with tenderness to palpation. Bowel sounds normoactive. TIMMY drain in the right upper quadrant with serosanginous drainage Neurological - Bilateral upper extremity strength 5/5, bilateral lower extremity strength 5/5, no facial droop, normal speech, no tremor, no sensory deficiets. Case discussed with Dr Lassiter Time spent on care 23 min Consults/Reason for consult surgery due to acute cholecystitis Operations or Procedures DATE OF SURGERY: 04/05/2024 PREOPERATIVE DIAGNOSES: * Cholelithiasis. * Cholecystitis. POSTOPERATIVE DIAGNOSES: * Cholelithiasis. * Cholecystitis. * Morbid obesity. SURGEON: Sharla Hester MD ANESTHESIA: General endotracheal, Dr. Wilson. PROCEDURES: * Laparoscopy. * Laparoscopic cholecystectomy. DESCRIPTION OF PROCEDURE: Under general endotracheal anesthesia with the patient's skin prepped and draped, supraumbilical incision was made. Veress needle inserted into the peritoneal cavity by the hanging drop technique in order to establish pneumoperitoneum to 15 mmHg pressure by insufflation with carbon dioxide. With the abdomen fully distended, the needle was removed and replaced with a 5 mm trocar port through which a 0-degree viewing laparoscope was inserted, and under direct vision, additional 5 and 10 mm ports inserted through the right anterior axillary line location at the level of the umbilicus and through the subxiphoid midline skin respectively. Instrumentation was introduced. Laparoscopy was performed revealing no obvious unexpected pathology, although laparoscopy was hampered by the patient's morbid obesity. The gallbladder was acutely inflamed and was massively distended, erythematous, and edematous. The gallbladder was placed on tension. The cystic duct and cystic artery were identified, circumferentially dissected, skeletonized, and traced into the hepatocystic triangle so as to minimize the potential for inadvertent injury to the common bile duct. The gallbladder was then manipulated in such a way as to be able to transect the cystic duct and cystic artery close to the gallbladder as these structures were foreshortened due to the inflammatory changes. The cystic duct and cystic artery were divided between metallic clips. Then, subsequently the gallbladder was resected from its liver bed by electrocautery and traction. The fully mobilized gallbladder was removed from the peritoneal cavity by placement in a specimen extraction bag. The subhepatic space was irrigated. The irrigant was aspirated. A 10 mm Tremayne-Duong drain was placed underneath the right lobe of the liver and exteriorized through the 5 mm trocar port site and secured with a 2-0 nylon suture. The patient's fascia was closed using Endo Close suture with a 2-0 Vicryl. The patient's skin approximated using metallic skin mila. She remained hemodynamically stable and left the operating room following assurance of complete hemostasis within the abdomen. The patient asked me preoperatively not to call her family after the surgery. MD FLORENCE Azevedo/TRINA/KASEY TID: [id number] RECEIPT: [id number] DICTATED BY:SHARLA HESTER MD DICTATED DATE/TIME:04/05/24 0761 ELECTRONICALLY SIGNED BY:SHARLA HESTER MD 04/05/24 1131 ELECTRONICALLY CO-SIGNED BY: Condition at Discharge: Stable Final Diagnosis/Problems List s/p cholecystectomy Acute abdominal pain Acute cholecystitis Ruled out acute pancreatitis Polysubstance abuse Discharge Disposition: Home Discharge Instruct/Medications Diet: Consistent carbohydrate Activity: Light activity Follow Up/Referral: f/u with DR HESTER and pa clinic, patient should keep the timmy until Dr Hester consult, write daily drainage Medications: see prescription Discharge Statement: "Patient was advised to return to the ER or call 911 if any headaches, dizziness, shortness of breath, chest pain, abdominal pain, bleeding, fevers, or worsening of medical condition. Patient was counseled about treatment plan, medications, possible side effects, patientverbalized understanding. All questions were answered to the best of my ability. This discharge took greater then 30 minutes in planning, reviewing documentation, counseling the patient, and discussing with other team members." ASSESSMENT ASSESSMENT Assessment s/p cholecystectomy Date of Service: Apr 07, 2024 Billing Provider: CATALINA LASSITER MD Common Visit Codes: [id number] DISCH DAY >30min MANJU CALLE RESIDENT Apr 07, 2024 14:20 CATALINA LASSITER MD Apr 09, 2024 10:33
[2024-04-07 15:35] VITALS: TEMP 37
--- NOTE | 2024-04-08 10:52 | ECG ---
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
--- NOTE | 2024-04-08 10:52 | ECG ---
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
== END 2024-04-07 16:30 | disposition home or self-care (01) | DRG 263 ==
LOC: ER 04:46 → OVERFLOW 09:57 → CENTRAL 09:59
PROVIDERS: ADMIT Student in an Organized Health Care Education/Training Program; ATTEND Student in an Organized Health Care Education/Training Program
PROC: 0FT44ZZ Resection of Gallbladder, Percutaneous Endoscopic Approach (ICD-10-PCS; principal; 2024-04-05 08:10)
DX: K80.00 Calculus of gallbladder with acute cholecystitis without obstruction (principal); E66.01 Morbid (severe) obesity due to excess calories; F19.10 Other psychoactive substance abuse, uncomplicated; F41.9 Anxiety disorder, unspecified; Z79.899 Other long term (current) drug therapy; Z68.39 Body mass index [BMI] 39.0-39.9, adult
CPT/HCPCS: 36415; 71045; 76705; 78226; 80053; 80307; 81001; 81025; 83605; 83690; 85025; 85610; 86850; 86900; 86901; 87040; 93005; 96361; 96365; 96375; G0378; J0330; J1100; J1885; J2250; J2405; J2470; J2704; J3490